=== PATIENT | male | born 1985 | race African-American/Black ===

== ENCOUNTER 2018-08-04 02:00 | Emergency (ER) | payer BC ==
[~2018-08-04] VITALS: Ht 177.8 cm; Wt 83.9 kg
[2018-08-04] MEDS ORDERED: NOHOMEMEDICATIONS (02:09)
[2018-08-04] MEDS ORDERED: KEFLEX500 M1 PO (02:54)
[2018-08-04 03:16] VITALS: BP 136/88
== END 2018-08-04 03:12 | disposition home or self-care (01) ==
LOC: ER 02:00
DX: S61.210A Laceration without foreign body of right index finger without damage to nail, initial encounter (principal); S61.212A Laceration without foreign body of right middle finger without damage to nail, initial encounter; W25.XXXA Contact with sharp glass, initial encounter; Y93.89 Activity, other specified; Y92.89 Other specified places as the place of occurrence of the external cause; Y99.8 Other external cause status